=== PATIENT | female | born 1960 | race Caucasian/White ===

== ENCOUNTER 2021-06-14 03:57 | Inpatient (IN) ==
[2021-06-14] MEDS ORDERED: Remdesivir 100 mg Vial 200 MG in NS 0.9% 250 ml 210 ML IV ONE (06:30)
[2021-06-14] MEDS ORDERED: Lactated Ringers 1000 ml BAG 1,000 ML IV SCH (07:00)
[2021-06-14] MEDS ORDERED: Albuterol HFA INHALER 8 gm MDI INH PRN (07:32)
[2021-06-14] MEDS ORDERED: cefTRIAXone 1 gm/50 mL NS BAG 1 GM/50 ML BAG IVPB SCH (07:52)
[2021-06-14 09:49] LABS: ABS Lymphocytes 0.6 10^3/ul (1.0-4.8); ABS Monocytes 0.2 10^3/ul (0-0.8); ABS Neutrophils 6.5 10^3/ul (1.5-7.7); Hematocrit 40 % (35-47); Hemoglobin 12.5 g/dL (12.0-16.0); Lymphocyte % 8.3 %; Mean Corpuscular HGB Conc 32 g/dL (31-36); Mean Corpuscular Hemoglobin 29 pg (27-31); Mean Corpuscular Volume 91 fL (80-97); Mean Platelet Volume 8.7 fL (7.4-10.4); Platelet Count 215 10^3/uL (150-450); Red Cell Distribution Width 18 % (10-15); White Blood Count 7.3 10^3/uL (3.5-10.8)
[2021-06-14 10:02] LABS: INR 1.7 (0.86-1.15)
[2021-06-14 10:12] LABS: Albumin/Globulin Ratio 0.7 (1-3); C Reactive Protein 180.39 mg/L (<8.01); Calcium 8.3 mg/dL (8.6-10.3); Direct Bilirubin 0.1 mg/dL (0.03-0.18); Globulin 4.5 g/dL (2-4); Indirect Bilirubin 0.2 mg/dL (0.3-1.0); Potassium 4.1 mmol/L (3.5-5.0); Total Bilirubin 0.3 mg/dL (0.2-1.0); Total Protein 7.5 g/dL (6.4-8.9); eGFR CKD-EPI 47.1 (>60)
[2021-06-14 11:45] LABS: Magnesium 1.8 mg/dL (1.9-2.7)
[2021-06-14] MEDS: Nystatin TOP POWDER 15 GM BTL TOPICAL SCH ×2 (12:47→21:34)
[2021-06-14 16:33] LABS: Urine Appearance Turbid; Urine Bilirubin Negative (Negative); Urine Blood 2+ (Negative); Urine Color Yellow; Urine Glucose 3+(>=500 mg/dL) (Negative); Urine Ketones Trace (Negative); Urine Nitrite Negative (Negative); Urine Protein 2+(100 mg/dL) (Negative); Urine Specific Gravity 1.016 (1.002-1.030); Urine Urobilinogen Negative (Negative)
[2021-06-14 16:58] LABS: Urine Bacteria 1+ (Absent); Urine Red Blood Cell 3+(>10/hpf) (Absent); Urine White Blood Cell 3+(>20/hpf) (Absent)
[2021-06-15 07:12] LABS: Albumin 2.8 g/dL (3.2-5.2); Albumin/Globulin Ratio 0.7 (1-3); Calcium 8.6 mg/dL (8.6-10.3); Globulin 4.3 g/dL (2-4); Magnesium 1.8 mg/dL (1.9-2.7); Potassium 4.4 mmol/L (3.5-5.0); Total Bilirubin 0.3 mg/dL (0.2-1.0); Total Protein 7.1 g/dL (6.4-8.9); eGFR CKD-EPI 46.6 (>60)
[2021-06-15] MEDS: Nystatin TOP POWDER 15 GM BTL TOPICAL SCH ×2 (09:15→20:42)
[2021-06-15] MEDS: cefTRIAXone 1 gm/50 mL NS BAG 1 GM/50 ML BAG IVPB SCH (09:21)
[2021-06-15] MEDS: Remdesivir 100 mg Vial 100 MG in NS 0.9% 250 ml 230 ML IV SCH (10:20)
[2021-06-16 07:07] LABS: Albumin 2.9 g/dL (3.2-5.2); Albumin/Globulin Ratio 0.7 (1-3); Calcium 8.5 mg/dL (8.6-10.3); Globulin 4.3 g/dL (2-4); Magnesium 1.7 mg/dL (1.9-2.7); Potassium 3.5 mmol/L (3.5-5.0); Total Bilirubin 0.3 mg/dL (0.2-1.0); Total Protein 7.2 g/dL (6.4-8.9); eGFR CKD-EPI 55.9 (>60)
[2021-06-16] MEDS ORDERED: Magnesium Sulfate 2 gm BAG 2 GM/50 ML BAG IVPB ONE (07:12)
[2021-06-16] MEDS: cefTRIAXone 1 gm/50 mL NS BAG 1 GM/50 ML BAG IVPB SCH (09:34)
[2021-06-16] MEDS: Nystatin TOP POWDER 15 GM BTL TOPICAL SCH (09:41)
[2021-06-16] MEDS: Remdesivir 100 mg Vial 100 MG in NS 0.9% 250 ml 230 ML IV SCH (12:13)
[2021-06-16 12:55] VITALS: BP 125/75
== END 2021-06-16 13:30 | disposition home or self-care (01) | DRG 178 ==
LOC: ED 03:57 → SUATTDRO 05:30 → EDHOLD 05:30 → MED 08:02
PROVIDERS: ADMIT Hospitalist; ATTEND Internal Medicine